=== PATIENT | female | born 1970 | race Asian ===

== ENCOUNTER 2019-08-07 15:11 | Outpatient (CLI) | payer OTHER ==
--- NOTE | 2019-08-11 14:38 | MMO ---
Bilateral MAMMO Bilat Screen [facility]. CLINICAL HISTORY: Patient is 48 years old and is seen for screening. VIEWS: The views performed were: . This study has been interpreted with the assistance of computer-aided detection. MAMMOGRAM FINDINGS: The breasts are heterogeneously dense, which could obscure a lesion on mammography. There is a 9 mm rounded mass inner mid right breast marked on film. There is a 5 mm nodular density lower right breast only seen on mlo tomosynthesis. Marked on film. In the left breast, there are no suspicious masses, calcifications or areas of architectural distortion. IMPRESSION: FINDING IN THE RIGHT BREAST REQUIRES ADDITIONAL EVALUATION. ADDITIONAL IMAGING. THE RESULTS OF THIS EXAM WERE SENT TO THE PATIENT. ACR BI-RADS Category 0 - Incomplete: Need additional imaging evaluation. [facility] will notify the patient of the need for additional imaging services. MAMMOGRAPHY NOTE: 1. A negative mammogram report should not delay a biopsy if a dominant of clinically suspicious mass is present. 2. Approximately 10% to 15% of breast cancers are not detected by mammography. 3. Adenosis and dense breasts may obscure an underlying neoplasm. Reported by: BHARTI BATISTA MD Electonically Signed: [id number]
== END 2019-08-07 15:12 | disposition home or self-care (01) ==
LOC: BICMAMMO 15:11
PROVIDERS: ATTEND Family Medicine
DX: Z12.31 Encounter for screening mammogram for malignant neoplasm of breast (principal)
CPT/HCPCS: 77063; 77067

== ENCOUNTER 2019-08-14 09:49 | Outpatient (CLI) | payer OTHER ==
--- NOTE | 2019-08-14 10:38 | MMO ---
Right Breast MAMMO Unilat Diag [facility] RT+ERMA. CLINICAL HISTORY: Patient is 49 years old and is seen for additional evaluation requested at current screening. The patient has no family history of breast cancer. The patient has no personal history of cancer. VIEWS: The views performed were: right craniocaudal spot compression with tomosynthesis; right mediolateral oblique spot compression with tomosynthesis; and right mediolateral with tomosynthesis. FILMS COMPARED: The present examination has been compared to prior imaging studies performed at [facility] [place] [facility] on 08/07/2019 and 08/14/2019. This study has been interpreted with the assistance of computer-aided detection. MAMMOGRAM FINDINGS: The breast is heterogeneously dense, which could obscure a lesion on mammography. Finding 1: There is a low density, oval mass measuring 8 millimeters with circumscribed margins seen in the upper-inner region of the right breast. The mass was shown to be a cyst on ultrasound. Finding 2: There is an equal density, oval mass measuring 5 millimeters with circumscribed margins seen in the anterior region of the right breast at 6 o'clock. The mass was shown to be a cyst on ultrasound. There are no suspicious masses, suspicious calcifications, or new areas of architectural distortion. IMPRESSION: THERE IS NO MAMMOGRAPHIC EVIDENCE OF MALIGNANCY. THE RESULTS OF THIS EXAM WERE SENT TO THE PATIENT. ACR BI-RADS Category 2 - Benign finding MAMMOGRAPHY NOTE: 1. A negative mammogram report should not delay a biopsy if a dominant of clinically suspicious mass is present. 2. Approximately 10% to 15% of breast cancers are not detected by mammography. 3. Adenosis and dense breasts may obscure an underlying neoplasm. Reported by: LORRI COLÓN MD Electonically Signed: [id number]
--- NOTE | 2019-08-18 07:56 | MMO ---
Right US Breast Limited Rt. CLINICAL HISTORY: Patient is 49 years old and is seen for . VIEWS: The views performed were: . FILMS COMPARED: The present examination has been compared to prior imaging studies performed at [facility] on 08/07/2019 and 08/14/2019. This study has been interpreted with the assistance of computer-aided detection. RIGHT BREAST ULTRASOUND FINDINGS: Finding 1: There is a simple cyst measuring 8 millimeters seen in the right breast at 2 o'clock. This corresponds with the mammographic finding in this location. Finding 2: There is a simple cyst measuring 5 millimeters seen in the right breast at 6 o'clock. This corresponds with the mammographic finding in this location. On ultrasound, no suspicious findings are identified. IMPRESSION: THERE IS NO EVIDENCE OF MALIGNANCY. THE RESULTS OF THIS EXAM WERE SENT TO THE PATIENT. ACR BI-RADS Category 2 - Benign finding MAMMOGRAPHY NOTE: 1. A negative mammogram report should not delay a biopsy if a dominant of clinically suspicious mass is present. 2. Approximately 10% to 15% of breast cancers are not detected by mammography. 3. Adenosis and dense breasts may obscure an underlying neoplasm. Reported by: LORRI COLÓN MD Electonically Signed: [id number]
== END 2019-08-14 09:50 | disposition home or self-care (01) ==
LOC: BICMAMMO 09:49
PROVIDERS: ATTEND Family Medicine
DX: N63.10 Unspecified lump in the right breast, unspecified quadrant (principal)
CPT/HCPCS: G0279

== ENCOUNTER 2023-07-26 08:17 | Outpatient (CLI) | payer OTHER | END 2023-07-26 08:18 | disposition home or self-care (01) | LOC: BICULT 08:17 | PROVIDERS: ATTEND Family Medicine | DX: R74.01 Elevation of levels of liver transaminase levels (principal); K76.0 Fatty (change of) liver, not elsewhere classified | CPT/HCPCS: 76705 ==